=== PATIENT | male | born 2000 | race American Indian/Alaskan Native ===

== ENCOUNTER 2019-05-21 16:32 | Emergency (ER) | payer SELFPAY ==
[2019-05-21 16:36] VITALS: BP 142/79
--- NOTE | 2019-05-21 17:42 | Emergency Department Report ---
Chief Complaint: Urogenital-Male Stated Complaint: CRAMPS/ABD PAIN/CHECK UP Time Seen by Provider: 05/21/19 17:38 - HPI History of Present Illness: This is a 18 y.o. M. that presents to the with occasional pelvic cramps for 1 week. Patient states his girlfriend said she is having vaginal discharge and he think he caught something. He is requesting STD screening. Denies n/v/d, urinary frequency, urgency, dysuria, testicular swelling/pain, penile discharge, fever, or chills. - ROS Review of Systems: General: STD screening Abdomen: abdominal cramping All other symptoms reviewed and no complaints. - Exam Vital Signs: Vital Signs 05/21/19 16:35 Temperature 98.5 F Pulse Rate 102 H Respiratory 18 Rate Blood Pressure 142/79 O2 Sat by Pulse 100 Oximetry Physical Exam: General Limitations: No Limitations General appearance: alert, in no apparent distress - Respiratory Respiratory exam: Present: normal lung sounds bilaterally. Absent: respiratory distress, wheezes, rales, rhonchi - Cardiovascular Cardiovascular Exam: Present: regular rate, normal rhythm, normal heart sounds. Absent: systolic murmur, diastolic murmur, rubs, gallop - GI/Abdominal GI/Abdominal exam: Present: soft, normal bowel sounds. Absent: tenderness, distended, guarding, rebound, rigid - Extremities Exam Extremities exam: Present: normal inspection - Back Exam Back exam: Present: normal inspection - Neurological Exam Neurological exam: Present: alert, oriented X3 - Psychiatric Psychiatric exam: Present: normal affect, normal mood - Skin Skin exam: Present: warm, dry, intact, normal color. Absent: rash MSE screening note: Focused history and physical exam performed. Due to findings the following was ordered: ED Medical Decision Making - Medical Decision Making This is a 18 y.o. M. that presents to the ER for STD test. Vitals are stable. Patient is nontoxic appearing and in no acute distress. Vitals are stable. Abdomen is nontender. Patient denies n/v/d, urinary frequency, urgency, dysuria, testicular swelling/pain, penile discharge, fever, or chills. Patient states his family doctor is at [facility]. His abdomen is nontender on exam. This is a non-emergent complaint. Patient instructed to follow up with PCP.. Patient discharged home stable. ED Disposition for MSE Disposition: Shyla- MED SCREENING EXAM-LEFT Condition: Stable Instructions: Safe Sex (ED), Sexually Transmitted Diseases (ED) Referrals: [facility] [Provider Group] - 3-5 Days [facility], [facility] [Provider Group] - 3-5 Days [facility] [Provider Group] - 3-5 Days Time of Disposition: 17:50
== END 2019-05-21 18:10 | disposition left against medical advice (07) ==
LOC: ED 16:32
DX: R10.2 Pelvic and perineal pain (principal)
CPT/HCPCS: 99281